=== PATIENT | male | born 1985 | race Caucasian/White ===

== ENCOUNTER 2022-07-30 21:07 | Emergency (ER) | payer OTHER ==
[2022-07-30 21:15] VITALS: BP 135/80
--- NOTE | 2022-07-30 21:42 | ED Physician Documentation ---
PD HPI UPPER EXT INJURY - Stated complaint Stated Complaint: LT HAND INJ - Chief complaint Chief Complaint: Trauma Ext - History obtained from History obtained from: Patient - History of Present Illness Location: Left, Hand Type of injury: Other Timing - onset: Enter time (18:00) Associated symptoms: No: Weakness, Numbness, Tingling, Swelling, Discolored Recently seen: Not recently seen - Additonal information Additional information: patient was using high-pressure pain injector gun at approximately 6 PM today when he accidentally sprayed his left hand while holding the device in his right hand. He estimates the distance between the two hands was about one foot apart. He does not have any pain, swelling, paresthesias. He was not wearing a glove on the left hand. He does not think the skin was broken but he was subsequently advised to go to ED for evaluation Review of Systems Skin: reports: Reviewed and negative Musculoskeletal: reports: Reviewed and negative Neurologic: denies: Focal weakness, Numbness PD PAST MEDICAL HISTORY - Past Medical History Past Medical History: Yes Cardiovascular: Other Other Past Medical History: Sick Sinus syndrome - Past Surgical History Past Surgical History: Yes Cardiovascular: Pacemaker - Present Medications Home Medications: Ambulatory Orders Medication Instructions Recorded Confirmed Metoprolol Succinate [Toprol Xl] 25 mg PO ONCE 07/30/22 07/30/22 - Allergies Allergies/Adverse Reactions: Allergies Allergy/AdvReac Type Severity Reaction Status Date / Time No Known Drug Allergies Allergy Verified 07/30/22 21:15 - Social History Does the pt smoke?: No Smoking Status: Never smoker - POLST Patient has POLST: No PD ED PE NORMAL - Vitals Vital signs reviewed: Yes - General General: Alert and oriented X 3, No acute distress, Well developed/nourished - Derm Derm: Normal color, Warm and dry - Extremities Extremities: No deformity, No tenderness to palpate, Normal ROM s pain, No edema - Neuro Neuro: No motor deficit, No sensory deficit Results - Vitals Vitals: Oxygen O2 Source Room air PD MEDICAL DECISION MAKING - ED course Complexity details: considered differential, d/w patient ED course: patient's concern, as is the pertinent literature, is that high-pressure pain guns can inject material underneath the skin even in absence of obvious skin defect. However, this is unlikely given the distance between the gun (in his right hand) and the exposed palm of his left hand (he shows me a few times his estimate of the distance apart, and it approximates a foot or more of distance). I carefully inspected the left hand, palmar surface, and see no defect, no evidence of pain under the skin; there is no tenderness, c/o pain, no limitation to ROM, no erythema, no swelling. Return precautions carefully discussed. Departure - Departure Disposition: 01 Home, Self Care Clinical Impression: Exposure to chemical compounds Condition: Good Instructions: ED Contusion Hand Comments: As we discussed, there does not appear to be any finding consistent with significant injury. If you develop pain, swelling, redness, please return to the emergency department for reevaluation immediately. Discharge Date/Time: 07/30/22 22:30
== END 2022-07-30 22:30 | disposition home or self-care (01) ==
LOC: ED 21:07
DX: Z03.89 Encounter for observation for other suspected diseases and conditions ruled out (principal)
CPT/HCPCS: 99281